=== PATIENT | male | born 1955 | race Caucasian/White ===

== ENCOUNTER → 2016-12-13 | Outpatient (CLI) | payer MEDICARE, OTHER ==
[~2016-12-13] MED LIST: ALBUTEROL17 GM INH; ARNUITY ELLIP200 MCG INH; ATORVASTATIN CA10 MG PO; CLEOCIN HCL300 M1 PO; GLACOMA EYE DROPS; GLUCOTROL XL PO; INVOKANA100 MG PO; LOPID600 MG PO; METFORMIN PO; MORGIDOX100 MG PO; MUCINEX DM1 TAB.SR . PO; PREDNISONE PO; VICODIN 5/500 T1 TAB PO; ZITHROMAX PO; ZOFRAN PO; ZOVIRAX800 MG PO
--- NOTE | ~2016-12-13 | CT55 ---
[facility] A Service of [facility] & [facility] RADIOLOGY TEXT RESULTS PATIENT: WILLIAM HEARN LOCATION: [facility] : 53 UNIT #: [id number] AGE: [address]: Kirstie Lanier APRN SEX: M ORDER DR: [id number] [place] [id number] O MR#: [id number] Acc #: [id number] NAME: WILLIAM HEARN : 1955 SEX: M STUDY DATE/TIME: 12/13/2016 12:27 UNIT: [facility] ROOM: STUDY DESCRIPTION: CT Chest W Con Attending Physician: Kirstie Lanier A.P.R.N. Referring Physician: Kirstie Lanier A.P.R.N. Ordering Physician: Kirstie Lanier A.P.R.N. Primary Care Physician: Walt Dowd M.D. MEDICAL IMAGING REPORT This report is preliminary unless electronic signature is present. EXAM CT chest with IV contrast. COMPARISON June 13, 2012 and November 02, 2010. INDICATION 61-year-old male with dyspnea for 3 months as well as a history of a pulmonary nodule. TECHNIQUE Axial CT imaging of the chest performed after IV administration of 80 mL of Isovue-370. Coronal and sagittal reformats were constructed. This CT exam was performed with one or more of the following radiation dose reduction techniques: automatic exposure control, adjustment of mA and/or kV according to patient size, and iterative reconstruction. FINDINGS Mild multilevel degenerative change of the thoracic spine. Nonspecific vacuum phenomena noted in the left glenohumeral joint. No acute fractures are suspicious osseous lesions. Tiny gas bubble noted in the right internal mammary vein, likely due to placement of the IV or intravenous contrast administration. No adenopathy. Dense calcifications of the left anterior descending coronary artery and its branches as well as left circumflex coronary artery. There is top normal heart size. There is enlarged heterogeneous appearance of left lobe of the thyroid gland with multiple left sided nodules. Two discrete hypoattenuating nodules measuring up to 1.4 cm x 1 cm, respectively. There is a separate hypoattenuating nodule measuring up to 9 mm and likely a fourth hypoattenuating nodule measuring up to 1.1 cm. While some of these nodules may have been present in 2013, they were not well evaluated at that time due to lack of IV contrast. [facility] A Service of [facility] RADIOLOGY TEXT RESULTS PATIENT: WILLIAM HEARN LOCATION: [facility] : 53 UNIT #: [id number] AGE: [address]: Kirstie Lanier [employer] SEX: M ORDER DR: Airways are widely patent. The exam is not optimized to evaluate for pulmonary embolus. There is normal caliber of the thoracic aorta. Cardiac pulsation artifact is noted at the ascending aorta. There is mild dilatation of the main pulmonary artery measuring up to 3.2 cm. No pleural effusion or pneumothorax. There are geographic ground-glass opacities in both lung bases where volume loss noted, most in keeping with atelectasis. Very small right middle lobe nodule appears less conspicuous than in 2013 and has certainly not changed in size, consistent with a benign etiology given the long-term stability. Separate nodule in the right upper lobe abutting the minor fissure currently measures up to 8 mm and is unchanged to slightly decreased in size from May 2012, also consistent with a benign etiology. No new pulmonary nodules are seen, although evaluation of the lower lobes is limited by lung opacities. 1.8 cm exophytic lesion extending from the superior pole of the left kidney has negative internal Hounsfield units and is grossly stable from 2013, most consistent with a benign angiomyolipoma. There is a nonobstructive calculus in the mid-right kidney. There is an exophytic superior pole nodule of the right kidney which has enlarged slightly from comparison and also has negative internal Hounsfield units, consistent with a benign angiomyolipoma. IMPRESSION 1. Right-sided pulmonary nodules are stable to diminished in size from June 11, 2012, consistent with a benign etiology given the 4-year stability. 2. There is now top normal heart size which may be a product of the low lung volumes. There has been progression of multivessel coronary artery calcification. Given the patient's symptoms of dyspnea, correlation for clinical significant coronary artery disease is recommended. 3. No evidence of COPD. There are low lung volumes and there is associated bibasilar atelectasis. 4. Multinodular appearance of the left lobe of the thyroid gland which is enlarged. While the heterogeneity is not changed from 2013, lack of IV contrast limits evaluation for nodules at that time, and there are now multiple thyroid nodules seen on this exam. Outpatient thyroid ultrasound is recommended for further characterization. The largest nodule measures up to approximately 1.4 cm. 5. Slightly elevated caliber of the main pulmonary artery. A finding which can be seen in pulmonary arterial hypertension. 6. Nonobstructive right renal calculus. 7. Single bilateral renal angiomyolipomas, benign lesions. No evidence of associated hemorrhage. [facility]. [facility] A Service of [facility] & [facility] RADIOLOGY TEXT RESULTS PATIENT: WILLIAM HEARN LOCATION: [facility] #: [id number] : 53 UNIT #: [id number] AGE: [address]: Kirstie Lanier APRN SEX: M ORDER DR: Dictated by... Dominic Moran M.D. THIS IS AN ELECTRONICALLY VERIFIED REPORT Dominic Moran M.D. at 12/14/2016 4:52 PM KIMBERLY/kitr TD: 12/14/2016 15:05 JOB #: [id number] MEDICAL IMAGING REPORT Page 1 of 1
[2016-12-13 12:05] LABS: POC - CREATININE 0.83 mg/dL (0.64-1.27); POC - GFR >60.0 mL/min (>60)
== END | disposition home or self-care (01) ==
LOC: SCT 12:31
PROVIDERS: Nurse Practitioner Family
DX: R06.00 Dyspnea, unspecified (principal); J98.11 Atelectasis; E04.2 Nontoxic multinodular goiter; N20.0 Calculus of kidney; D30.02 Benign neoplasm of left kidney; D30.01 Benign neoplasm of right kidney; R91.8 Other nonspecific abnormal finding of lung field; R93.8 Abnormal findings on diagnostic imaging of other specified body structures
CPT/HCPCS: 71260; 82565; Q9967